=== PATIENT | male | born 1950 | race Caucasian/White ===

== ENCOUNTER → 2022-06-12 | Outpatient (CLI) | payer OTHER, MEDICARE ==
[~2022-06-12] MED LIST: ACETAMINOPHEN/CODEINE 300MG - 30MG TAB ONE; LIDOCAINE 1% 10 ML MULTIDOSE VIAL IJ ONE
[2022-06-12 10:04] LABS: HEMOGLOBIN 13.7 g/dL (14.0-18.0)
[2022-06-12 10:44] LABS: INR 1.08; PROTHROMBIN TIME 14.2 seconds (11.9-14.5)
[2022-06-12 10:45] LABS: PARTIAL THROMBOPLASTIN TIME 35.4 seconds (23.8-35.5)
[2022-06-12 12:56] LABS: APPEARANCE,CSF CLEAR (CLEAR); COLOR,CSF COLORLESS (COLORLESS); TUBE NUMBER 3
[2022-06-12 12:57] LABS: WHITE BLOOD CELL,CSF 2 cells/uL (0-5)
== END ==
LOC: DX 05-27 10:07
PROVIDERS: ATTEND Ophthalmology Ophthalmic Plastic and Reconstructive Surgery
DX: H47.10 Unspecified papilledema (principal)
CPT/HCPCS: 36415; 62328; 82945; 84157; 85014; 85049; 85610; 85730; 86592; 87070; 87205; 89051